=== PATIENT | female | born 1990 | race African-American/Black ===

== ENCOUNTER 2016-03-26 01:09 | Emergency (ER) | payer SELFPAY ==
[~2016-03-26] VITALS: Ht 170.2 cm; Wt 130.2 kg
[2016-03-26] MEDS ORDERED: ALBUTEROL2.5 MG/3 M INH (01:25)
[2016-03-26] MEDS ORDERED: PHENTERMINE HCL15 MG PO (01:25)
[2016-03-26 01:32] VITALS: BP 112/60
--- NOTE | 2016-03-26 01:43 | Emergency Room Report ---
History of Present Illness General Chief Complaint: Abdominal Pain Source: Patient Present Illness HPI Is a 25-year-old female who presents with chief complaint abdominal pain with vomiting. Onset today. She started may be a mixture alcohol last night and diet pill that she taking. Has fever and chills. No diarrhea. Vomiting is nonbloody nonbilious. She went to another hospital but the wait was too long so so she came here. Denies any other complaint. Allergies: Coded Allergies: No Known Allergies (Unverified , 03/26/16) Patient History Past Medical History: see triage record, old chart reviewed, asthma Past Surgical History: none Pertinent Family History: none Social History: Denies: drug use Last Menstrual Period: 2 months ago Now: No - unk : 0 Immunizations: other Reviewed Nursing Documentation: PMH: Agreed, PSxH: Agreed Nursing Documentation-PMH Past Medical History: No History, Except For Hx Asthma: Yes Review of Systems Eye: Denies: blurred vision, eye pain ENT: Denies: ear pain, nose congestion, throat swelling Respiratory: Denies: cough, shortness of breath Cardiovascular: Denies: chest pain, palpitations Gastrointestinal: Reports: abdominal pain, nausea, vomiting, Denies: diarrhea Musculoskeletal: Denies: back pain, joint pain Skin: Denies: rash Neurological: Denies: headache, numbness Endocrine: Denies: increased thirst, increased urine Hematologic/Lymphatic: Denies: easy bruising All Other Systems: negative except mentioned in HPI Physical Exam Vital Signs Date Time Temp Pulse Resp B/P Pulse Ox O2 Delivery O2 Flow Rate FiO2 03/26/16 01:15 98.8 70 20 98 Room Air 03/26/16 01:32 112/60 vitals normal Sp02 EP Interpretation: reviewed, normal General Appearance: well appearing, no apparent distress, alert, obese Head: normocephalic, atraumatic Eyes: bilateral eye EOMI, bilateral eye PERRL ENT: hearing grossly normal, normal pharynx Neck: full range of motion, supple, no meningismus Respiratory: chest non-tender, lungs clear, normal breath sounds Cardiovascular #1: regular rate, rhythm, no murmur Gastrointestinal: no mass, no organomegaly, no bruit, non-distended, abnormal bowel sounds - Hyperactive, tenderness - Diffuse Musculoskeletal: back normal, gait/station normal, normal range of motion Neurologic: alert, oriented x3 Psychiatric: mood/affect normal Skin: warm/dry Medical Decision Making Diagnostic Impression: Primary Impression: Abdominal pain Qualified Codes: R10.84 - Generalized abdominal pain Additional Impression: Vomiting Qualified Codes: R11.2 - Nausea with vomiting, unspecified ER Course Patient presents with vomiting and abdominal pain. Based on my clinical exam she probably has getting a gastroenteritis. Mom has the same thing. She felt better now. We'll discharge him with reassurance. No evidence of obstruction or acute abdomen. Lab Results Impression labs unremarkable CT/MRI/US Diagnostic Results CT/MRI/US Diagnostic Results : Imaging Test Ordered: CT abdomen and pelvis Impression negative per radiologist Last Vital Signs Date Time Temp Pulse Resp B/P Pulse Ox O2 Delivery O2 Flow Rate FiO2 03/26/16 01:32 98.8 84 18 112/60 98 Room Air Status: improved Disposition: HOME, SELF-CARE Condition: Stable Scripts Ondansetron (Zofran) 4 Mg Tablet 4 MG ORAL Q6H Y for Nausea & Vomiting, #10 TAB 0 Refills Prov: АНДРЕЙ CABEZAS M.D. 03/26/16 Ibuprofen* (MOTRIN*) 600 Mg Tablet 600 MG ORAL THREE TIMES A DAY, #30 TAB 0 Refills Prov: АНДРЕЙ CABEZAS M.D. 03/26/16 Patient Instructions: Abdominal Pain, Adult Additional Instructions: Followup with your DrJessica in 2 to 3 days if not better. Push fluids. Did not stop diarrhea. Return if symptom worsen. АНДРЕЙ CABEZAS M.D. Mar 26, 2016 01:43
[2016-03-26] MEDS ORDERED: Ketorolac 30mg Inj IV ONE (01:45)
[2016-03-26 02:15] LABS: APPEARANCE,URINE SLIGHTLY CLOUDY; KETONES,URINE 3+ (NEGATIVE); LEUKOCYTE ESTERASE ,URINE 1+ (NEGATIVE); NITRITE,URINE NEGATIVE (NEGATIVE); PH,URINE 5 (4.5-8.0); PROTEIN,URINE 2+ (NEGATIVE); UROBILINOGEN,URINE 1 MG/DL (0.0-1.0)
[2016-03-26 02:15] LABS: BASOPHILS % (AUTO) 0.9 % (0.0-2.0); EOSINOPHILS % (AUTO) 0.3 % (0.0-3.0); LYMPHOCYTES % (AUTO) 11.6 % (20.0-45.0); MEAN CORPUSCULAR HGB CONC 31.6 G/DL (32.0-36.0); MEAN CORPUSCULAR VOLUME 82 FL (80-99); MEAN PLATELET VOLUME 11.1 FL (6.5-10.1); MONOCYTES % (AUTO) 3.6 % (1.0-10.0); NEUTROPHILS % (AUTO) 83.5 % (45.0-75.0); PLATELET COUNT 235 K/UL (150-450); RED CELL DISTRIBUTION WIDTH 12.8 % (11.6-14.8); WHITE BLOOD COUNT 10.7 K/UL (4.8-10.8)
[2016-03-26 02:23] LABS: BACTERIA,URINE FEW /HPF; SQUAMOUS EPITHELIAL CELL,UR FEW /LPF (NONE/OCC)
[2016-03-26 02:24] LABS: AMORPHOUS SEDIMENT,UR MODERATE /LPF
[2016-03-26 02:32] VITALS: BP 115/62
[2016-03-26 03:23] LABS: ALANINE AMINOTRANSFERASE 154 U/L (3-33); ALBUMIN/GLOBULIN RATIO 1.2 (1.0-2.7); ANION GAP 16 (5-15); ASPARTATE AMINO TRANSFERASE 88 U/L (5-40); CALCIUM 9.5 mg/dL (8.6-10.2); CARBON DIOXIDE 24 mEQ/L (20-30); CHLORIDE 100 mEQ/L (98-107); CREATININE 0.8 mg/dL (0.5-0.9); GLOMERULAR FILTRATION RATE > 60 mL/min (>60); HEMOLYSIS 3; LIPASE 18 U/L (< 60); POTASSIUM 4.3 mEQ/L (3.4-4.9); SODIUM 140 mEQ/L (135-145); TOTAL PROTEIN 7.6 g/dL (6.6-8.7)
[2016-03-26] MEDS ORDERED: IBUPROFEN600 MG ORAL (03:33)
[2016-03-26] MEDS ORDERED: ZOFRAN4 MG ORAL (03:33)
[2016-03-26 03:35] VITALS: BP_SYST 125; BP_DIAS 75; BP_DIAS 78
--- NOTE | 2016-03-26 09:19 | Diagnostic Imaging Report ---
Indication: Abdominal pain Technique: Spiral acquisitions obtained through the abdomen and pelvis. No oral contrast utilized, per emergency room physician request No IV contrast utilized, per referring physician request.. Multiplanar reconstructions were generated. Total dose length product 1122 mGycm. CTDIvol(s) 19 mGy Comparison: None Findings: Lack of oral contrast limits assessment of the enteric structures. Normal appendix. No evidence of diverticulosis or diverticulitis. No small bowel distention. No free or loculated intraperitoneal air or fluid. Distal esophagus, stomach, duodenum are unremarkable. Lack of IV contrast limits assessment of the solid organs. The liver demonstrates diffuse low attenuation, consistent with fatty change. No definite focal abnormality. The gallbladder, bile ducts, pancreas, spleen, adrenals, kidneys, ureters, bladder are unremarkable. Normal uterus and ovaries. The included lung bases are clear. The bones are unremarkable. Impression: No acute abnormality Fatty liver This agrees with the preliminary interpretation provided overnight by [facility]. The CT scanner at [facility] is accredited by the [employer] and the scans are performed using protocols designed to limit radiation exposure to as low as reasonably achievable to attain images of sufficient resolution adequate for diagnostic evaluation.
== END 2016-03-26 03:35 | disposition home or self-care (01) ==
LOC: EMR 01:37
DX: R10.84 Generalized abdominal pain (principal); R11.2 Nausea with vomiting, unspecified; J45.909 Unspecified asthma, uncomplicated
CPT/HCPCS: 36415; 74176; 80053; 81003; 81025; 83690; 85025; 96361; 96374; 96375; 99284; J1885; J2405

== ENCOUNTER 2017-01-27 15:15 | Emergency (ER) | payer OTHER ==
[~2017-01-27] VITALS: Ht 170.2 cm; Wt 126.1 kg
[~2017-01-27 15:15] MED LIST: ALBUTEROL2.5 MG/3 M INH; IBUPROFEN600 MG ORAL; PHENTERMINE HCL15 MG PO; ZOFRAN4 MG ORAL
[2017-01-27 15:25] VITALS: BP 130/86
[2017-01-27] MEDS ORDERED: Azithromycin 250mg tab ORAL ONE (15:45)
--- NOTE | 2017-01-27 15:48 | Emergency Room Report ---
History of Present Illness General Chief Complaint: General Complaint Source: Patient, Medical Record Present Illness HPI Patient presents with sore throat fever that began yesterday morning. Symptoms worsened. She's also felt chills. There's nausea. No vomiting. Her last period was 3 weeks ago. She feels that she might have a yeast infection. There 's no dysuria. In addition she has right elbow pain. The medial side. She feels some tingling and numbness in that area. 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 She is right-handed. No vomiting, chest pain, cough, neck pain, rashes, depression. Allergies: Coded Allergies: No Known Allergies (Unverified , 03/26/16) Patient History Past Medical History: see triage record Social History: Denies: smoking Social History Narrative lifting job Last Menstrual Period: 01/06/17 Reviewed Nursing Documentation: PMH: Agreed, PSxH: Agreed Nursing Documentation-PMH Past Medical History: No History, Except For Hx Asthma: Yes Review of Systems All Other Systems: negative except mentioned in HPI Physical Exam Vital Signs Date Time Temp Pulse Resp B/P (MAP) Pulse Ox O2 Delivery O2 Flow Rate FiO2 01/27/17 15:23 99.7 115 18 130/86 98 Room Air Sp02 EP Interpretation: reviewed, normal General Appearance: well appearing, no apparent distress Head: normocephalic, atraumatic Eyes: bilateral eye normal inspection, bilateral eye PERRL ENT: hearing grossly normal, normal voice, pharyngeal erythema, other - white plaques tongue Neck: full range of motion, supple Respiratory: lungs clear, no respiratory distress, speaking full sentences Gastrointestinal: normal bowel sounds, non tender, soft Musculoskeletal: digits/nails normal, gait/station normal, normal range of motion Neurologic: alert, normal gait, other - palpation of ulnar gutter with recreation of pain and tingling feeling, grossly normal Psychiatric: mood/affect normal Skin: no rash Medical Decision Making Diagnostic Impression: Primary Impression: Pharyngitis Qualified Codes: J02.9 - Acute pharyngitis, unspecified Additional Impressions: Thrush Cubital tunnel syndrome Qualified Codes: G56.21 - Lesion of ulnar nerve, right upper limb ER Course Patient presents with sore throat and fevers for 2 days. Exam is consistent with exudative pharyngitis. In addition to that she has a white plaques on the tongue suggestive of thrush. 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 She'll be treated with antibiotics and Motrin. Discussed findings. Patient stable for outpatient observation and treatment. Last Vital Signs Date Time Temp Pulse Resp B/P (MAP) Pulse Ox O2 Delivery O2 Flow Rate FiO2 01/27/17 16:05 99.7 108 18 130/86 98 Room Air Status: improved Disposition: HOME, SELF-CARE Condition: Improved Scripts Ibuprofen* (MOTRIN*) 600 Mg Tablet 600 MG ORAL Q6H Y for For Pain, #20 TAB Prov: Moe Oliver M.D. 01/27/17 Tramadol Hcl* (ULTRAM*) 50 Mg Tablet 50 MG ORAL Q6H Y for For Pain, #8 TAB 0 Refills Prov: Moe Oliver M.D. 01/27/17 Fluconazole (FLUCONAZOLE) 100 Mg Tablet 100 MG ORAL DAILY, #2 TAB 0 Refills take one today and one in 7 days Prov: Moe Oliver M.D. 01/27/17 Azithromycin* (ZITHROMAX*) 250 Mg Tablet 250 MG ORAL DAILY, #4 TAB Prov: Moe Oliver M.D. 01/27/17 Moe Oliver M.D. Jan 27, 2017 15:48
[2017-01-27] MEDS ORDERED: AZITHROMYCIN250 MG ORAL (15:52)
[2017-01-27] MEDS ORDERED: TRAMADOL HCL50 MG ORAL (15:52)
[2017-01-27] MEDS ORDERED: FLUCONAZOLE100 MG ORAL (15:52)
[2017-01-27] MEDS ORDERED: IBUPROFEN600 MG ORAL (15:53)
[2017-01-27 16:05] VITALS: BP 130/86
== END 2017-01-27 16:05 | disposition home or self-care (01) ==
LOC: EMR 15:50
DX: J02.9 Acute pharyngitis, unspecified (principal); G56.21 Lesion of ulnar nerve, right upper limb; B37.9 Candidiasis, unspecified; J45.909 Unspecified asthma, uncomplicated
CPT/HCPCS: 99284; Q0144

== ENCOUNTER 2017-05-06 12:43 | Emergency (ER) | payer MEDICAID, OTHER ==
[~2017-05-06] VITALS: Ht 170.2 cm; Wt 113.4 kg
[~2017-05-06 12:43] MED LIST changes: +AZITHROMYCIN250 MG ORAL; +FLUCONAZOLE100 MG ORAL; +TRAMADOL HCL50 MG ORAL
[2017-05-06] MEDS: Ipratropium 0.02% Inh Soln 2.5ml UD HHN SCH ×3 (13:29→13:31)
[2017-05-06] MEDS: Albuterol ud Inhalation HHN SCH ×3 (13:29→13:31)
[2017-05-06] MEDS ORDERED: PREDNISONE20 MG ORAL (14:07)
[2017-05-06 14:11] VITALS: BP 127/56
[2017-05-06] MEDS ORDERED: ALBUTEROL2.5 MG/3 M HHN (14:12)
[2017-05-06 14:15] VITALS: BP 127/56
[2017-05-06] MEDS ORDERED: TESSALON PERLE100 MG ORAL (14:17)
--- NOTE | 2017-05-06 14:28 | Emergency Room Report ---
History of Present Illness General Chief Complaint: Dyspnea/Respdistress Source: Patient Present Illness HPI 26-year-old female with history of asthma, p/w SOB for 3 days. SOB occurs both at rest and on exertion. + non productive cough. Denies chest pain. Patient has been using albuterol inhaler every 6 hours. +nebulizer at home. No recent steroid use. Pt states that this episode is similar to other episodes of asthma exacerbation. Denies fever, chills. Denies sick contacts or recent travel. Patient denies history of ICU admissions, intubations, or usage of BIPAP for asthma. Denies history of PE/DVT, no recent surgeries, prolonged immobilization, malignancy, or use of OCPs/HRT. Allergies: Coded Allergies: No Known Allergies (Unverified , 03/26/16) Patient History Past Medical History: see triage record Past Surgical History: none Pertinent Family History: none Last Menstrual Period: 3 weeks Now: No Reviewed Nursing Documentation: PMH: Agreed, PSxH: Agreed Nursing Documentation-PMH Past Medical History: No History, Except For Hx Cardiac Problems: No Hx Hypertension: No Hx Pacemaker: No Hx Asthma: Yes Hx COPD: No Hx Diabetes: No Hx Cancer: No Hx Gastrointestinal Problems: No Hx Dialysis: No History Of Psychiatric Problem: No Hx Neurological Problems: No Hx Cerebrovascular Accident: No Hx Seizures: No Review of Systems All Other Systems: negative except mentioned in HPI Physical Exam Vital Signs Date Time Temp Pulse Resp B/P (MAP) Pulse Ox O2 Delivery O2 Flow Rate FiO2 05/06/17 12:52 97.9 79 22 115/89 95 Room Air 97.9 05/06/17 13:31 21 Sp02 EP Interpretation: reviewed, normal General Appearance: normal inspection, well appearing, no apparent distress, alert, GCS 15, non-toxic, other - full sentences, NAD Head: normocephalic, atraumatic Eyes: bilateral eye normal inspection, bilateral eye PERRL, bilateral eye EOMI ENT: normal ENT inspection, normal pharynx, normal voice, moist mucus membranes Neck: normal inspection, full range of motion, supple Respiratory: speaking full sentences, wheezing, expiration Cardiovascular #1: normal inspection, regular rate, rhythm, no edema, normal capillary refill Cardiovascular #2: 2+ radial (R), 2+ radial (L) Gastrointestinal: normal inspection, non tender, soft, non-distended, no guarding Musculoskeletal: normal inspection, back normal, normal range of motion, non- tender Neurologic: normal inspection, alert, oriented x3, responsive, motor strength/ tone normal, sensory intact, normal gait, speech normal Psychiatric: normal inspection, judgement/insight normal, memory normal Skin: normal inspection, normal color, no rash, warm/dry, well hydrated, normal turgor Medical Decision Making Diagnostic Impression: Primary Impression: Asthma ER Course 26-year-old female with history of asthma p/w SOB DDX: Asthma exacerbation, pneumonia, upper respiratory infection/viral syndrome PE is unlikely given other likely diagnoses which is more likely in this patients given clinical scenario and physical examination. Furthermore, there is no history of DVT/PE. PERC negative. No risk factors such as OCPs, prolonged immobilizations, recent surgeries, hypercoagulability. Plan: Combivent nebulizer treatment x 3, steroids ER Course: Patient has been treated with combivent x 3, steroids Patient's overall respiratory status has improved in ED. Patient states improvement of symptoms. Patient continues to speak in complete sentences and is not in respiratory distress. Repeat lung auscultation: good air entry with minimal/no wheezing. Repeat VS reveals normal RR and SpO2. Disposition: Patient will be discharged to home with course of steroids and albuterol. Patient is instructed to use albuterol inhaler as needed. Strict precautions are discussed with patient on when to emergently return to the ED including: persistent or worsening SOB, chest pain, fever, chills, which could indicate severe illness. Patient verbalized understanding. Patient is to follow up with her/his PMD within 5 days. Patient agrees with plan. Last Vital Signs Date Time Temp Pulse Resp B/P (MAP) Pulse Ox O2 Delivery O2 Flow Rate FiO2 05/06/17 14:15 97.9 93 20 127/56 96 Room Air 21 97.9 Disposition: HOME, SELF-CARE Condition: Improved Scripts Benzonatate* (TESSALON PERLE*) 100 Mg Capsule 100 MG ORAL THREE TIMES A DAY for 7 Days, #21 PERLE Prov: Retino,Clairose M.D. 05/06/17 Albuterol Sulfate* (ALBUTEROL SULFATE HHN*) 2.5 Mg/3 Ml Vial.neb 2.5 MG HHN Q4H Y for Shortness of Breath, #25 VIAL 0 Refills Prov: Javed Anthony M.D. 05/06/17 Prednisone* (PREDNISONE*) 20 Mg Tablet 40 MG ORAL DAILY for 5 Days, #10 TAB 0 Refills Prov: Javed Anthony M.D. 05/06/17 Patient Instructions: Asthma, Adult, [id number] Javed Anthony M.D. May 06, 2017 14:28
== END 2017-05-06 14:20 | disposition home or self-care (01) ==
LOC: EMR 13:21
DX: J45.909 Unspecified asthma, uncomplicated (principal)
CPT/HCPCS: 94640; 94664; 99284; J7512

== ENCOUNTER 2018-07-07 13:30 | Emergency (ER) | payer MEDICAID, OTHER ==
[~2018-07-07] VITALS: Ht 170.2 cm; Wt 127.0 kg
[~2018-07-07 13:30] MED LIST changes: +ALBUTEROL2.5 MG/3 M HHN; +PREDNISONE20 MG ORAL; +TESSALON PERLE100 MG ORAL
--- NOTE | 2018-07-07 13:38 | NUR ---
ED Nurse Note: Patient walked into ED c/o coughing for almost 10 days. patient also reports right eye some swelling noted, no skin opening noted. patient is alert awake x4 ambulatory.
[2018-07-07 14:43] VITALS: BP 131/92
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
[2018-07-07] MEDS ORDERED: ALBUTEROL2.5 MG/3 M INH (14:46)
[2018-07-07] MEDS ORDERED: PREDNISONE20 MG ORAL (14:46)
[2018-07-07] MEDS ORDERED: OCUFLOX5 ML OP (14:46)
[2018-07-07] MEDS ORDERED: ALBUTEROL SULF8.5 GM INH (14:46)
[2018-07-07 14:50] VITALS: BP 131/92
--- NOTE | 2018-07-07 14:50 | NUR ---
ER DISCHARGE NOTE: Patient is cleared to be discharged per WANG WILSON, pt is aox4, on room air, with stable vital signs. pt was given dc and prescription instructions, pt was able to verbalize understanding, pt id band removed without complications. pt is able to ambulate with steady gait. pt took all belongings.
== END 2018-07-07 14:50 | disposition home or self-care (01) ==
LOC: EMR 14:00
DX: J45.31 Mild persistent asthma with (acute) exacerbation (principal); H10.9 Unspecified conjunctivitis
CPT/HCPCS: 99282